=== PATIENT | female | born 1985 | race Caucasian/White ===

== ENCOUNTER 2019-02-18 01:10 | Emergency (ER) | payer MEDICAID ==
[2019-02-18] MEDS: ONDANSETRON (ODT) 4 MG TAB ODT (03:58)
[2019-02-18] MEDS: LIDOCAINE/MYLANTA 40 ML BTL PO (03:58)
[2019-02-18] MEDS: RANITIDINE 150 MG TAB PO (04:00)
== END 2019-02-18 04:37 | disposition home or self-care (01) ==
LOC: FTE 01:10
DX: R11.2 Nausea with vomiting, unspecified (principal); R19.7 Diarrhea, unspecified
CPT/HCPCS: Z7610